=== PATIENT | female | born 1965 | race Caucasian/White ===

== ENCOUNTER 2019-09-18 04:06 | Emergency (ER) | payer BC, OTHER ==
[2019-09-18 04:22] VITALS: O2SAT 96
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
[2019-09-18 05:05] VITALS: BP 160/94; PULSE 74
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
== END 2019-09-18 05:13 | disposition home or self-care (01) ==
LOC: ED 04:06
DX: S46.911A Strain of unspecified muscle, fascia and tendon at shoulder and upper arm level, right arm, initial encounter (principal); M25.521 Pain in right elbow; M79.631 Pain in right forearm; Y04.0XXA Assault by unarmed brawl or fight, initial encounter; Y93.89 Activity, other specified; Y92.231 Patient bathroom in hospital as the place of occurrence of the external cause; Y99.0 Civilian activity done for income or pay
CPT/HCPCS: 73080; 99283

== ENCOUNTER 2022-01-27 06:03 | Day surgery (SDC) | payer OTHER ==
[2022-01-27] MEDS ORDERED: Lactated Ringers 1,000 ML IV SCH (06:30)
[2022-01-27] MEDS ORDERED: Xylocaine-Mpf 2% 5 Ml Vial ONE (07:04)
[2022-01-27] MEDS ORDERED: Versed 2 MG/2 ML Injection ONE (07:04)
[2022-01-27] MEDS ORDERED: DIPRIVAN 200 MG/20 ML IV ONE (07:04)
--- NOTE | 2022-01-27 07:49 | OP ---
SURGERY DATE/TIME: 01/27/2022 0705 PREOPERATIVE DIAGNOSES: 1) Gastroesophageal reflux. 2) Screening colon exam. POSTOPERATIVE DIAGNOSES: 1) GASTRITIS. 2) NORMAL COLON. PROCEDURE: 1) EGD with cold forceps biopsy. 2) Colonoscopy. SURGEON: Dr. Li. ANESTHESIA: MAC. Medications given by anesthesia department. HISTORY: The patient is a 56-year-old white female presenting now for request of doing upper endoscopy due to chronic gastroesophageal reflux disease. She has to take Prilosec otherwise she has abdominal pain. She reports she had her gallbladder removed ten years ago and has had problems over the last eight years. The patient is also felt to also need endoscopic evaluation for colon cancer screening. She was appraised of the risks of the procedure including the risk of perforation, phlebitis, untoward reaction to medication, bleeding and missed lesions. The patient verbalized her understanding and desired to have the procedure performed. DESCRIPTION OF PROCEDURE: The patient was given the medications by the anesthesia department. She had continuous pulse oximetry, ECG monitoring and intermittent blood pressure monitoring during the examination. She was placed in the left lateral decubitus position. A bite block was placed. The flexible Olympus gastroscope was used to intubate the oropharynx. A view of the larynx was obtained and was normal. The scope was introduced in the esophagus which appeared to be normal throughout its length. The stomach was entered where normal gastric rugal folds were seen and these distended nicely with insufflation of air. The scope was passed along the greater curvature of the stomach to the antrum. The pylorus encountered and intubated. The duodenum inspected and found to be normal. The scope is withdrawn towards the stomach. Again, a retroflex view was obtained of the lesser curvature of fundus and cardia region of the stomach and these appeared to be essentially normal. Biopsies were obtained from gastric antrum to rule out any evidence of Helicobacter pylori and confirm the presence of what we thought was likely clinical gastritis. The scope was then removed from the patient. Next, a digital rectal examination was performed and revealed normal anal sphincter tone and no masses. The flexible Olympus pediatric colonoscope was used to intubate the rectum. A view of the colon was developed sequentially to the cecum. Upon insertion and withdrawal, including a retroflex view in the rectum, no mucosal lesions were encountered. The scope was removed from the patient who tolerated the procedure well and was sent back to OP recovery in good condition. The prep was noted to be fair to good.
[2022-01-27 09:14] VITALS: O2SAT 97
[2022-01-27 09:22] VITALS: BP 128/78; PULSE 78
== END 2022-01-27 08:55 | disposition home or self-care (01) ==
LOC: SDC 06:03
PROVIDERS: ATTEND Family Medicine
DX: Z12.11 Encounter for screening for malignant neoplasm of colon (principal); K21.9 Gastro-esophageal reflux disease without esophagitis; K29.70 Gastritis, unspecified, without bleeding
CPT/HCPCS: J2250; J2704

== ENCOUNTER 2022-02-24 10:01 | Day surgery (SDC) | payer OTHER ==
[~2022-02-24 10:01] MED LIST: BUPIVACAINE 0.5% VIAL IJ ONE; Lactated Ringers 1,000 ML IV ONE; XYLOCAINE 1% HCL 20 ML MDV ONE
[2022-02-24] MEDS ORDERED: Lactated Ringers 1,000 ML IV SCH (10:30)
[2022-02-24] MEDS ORDERED: Lactated Ringers 1,000 ML IV ONE (10:39)
[2022-02-24] MEDS ORDERED: CEFAZOLIN 2 GM-D5W BAG** 2 GM/50 ML ML IV SCH (11:00)
[2022-02-24] MEDS ORDERED: Reglan 10 MG/2 ML IV ONE (11:15)
[2022-02-24] MEDS ORDERED: Pepcid 20 MG VIAL IV ONE (11:15)
[2022-02-24] MEDS ORDERED: Zofran 4 MG/2 ML VIAL ONE (11:22)
[2022-02-24] MEDS ORDERED: TORAdol 30 mg Injection ONE (11:22)
[2022-02-24] MEDS ORDERED: Decadron 4 MG INJ ONE (11:22)
[2022-02-24] MEDS ORDERED: DIPRIVAN 200 MG/20 ML IV ONE (11:22)
[2022-02-24] MEDS ORDERED: Xylocaine-Mpf 2% 5 Ml Vial ONE (11:22)
[2022-02-24] MEDS ORDERED: SUBLIMAZE 250 MCG/5 ML ONE (11:32)
[2022-02-24] MEDS ORDERED: SUBLIMAZE 100 MCG/2 ML ONE ×3 (12:06→13:22)
[2022-02-24] MEDS ORDERED: Versed 2 MG/2 ML Injection ONE (12:07)
[2022-02-24] MEDS ORDERED: Ephedrine Sulfate 50 MG/ML ONE (12:23)
[2022-02-24] MEDS ORDERED: Proair Hfa MDI IH ONE (12:52)
--- NOTE | 2022-02-24 15:30 | OP ---
SURGERY DATE/TIME: 02/24/2022 1204 PREOPERATIVE DIAGNOSES: 1) Pain left heel. 2) Plantar fasciitis left heel. POSTOPERATIVE DIAGNOSES: 1) Pain left heel. 2) Plantar fasciitis left heel. PROCEDURE: Endoscopic plantar fasciotomy. SURGEON: Timmy Ramos DPM. LOCKMAKER: Jade Stacy. ANESTHESIA: General plus postoperative local injection. HEMOSTASIS: Pressure dressing. ESTIMATED BLOOD LOSS: Less than 3 cc. MATERIALS: 3-0 Nylon. INJECTABLES: 20 cc of 1:1 mixture of 1% lidocaine plain and 0.5% bupivacaine plain injected in an ankle block type fashion. INDICATION FOR SURGERY: Cass is a very pleasant 56-year-old female who has been seen by me multiple time for plantar fasciitis, getting minimal relief with physical therapy eccentric stretching of posterior muscle group, ultrasound, PRN modalities, orthotics, injections and leg splint. The patient was offered continued conservative therapy. However, the patient at this time has failed all conservative therapies and would like to proceed with surgical intervention at this time. The patient was advised as to the potential complications, risks, benefits and complications of the procedure to which she agreed risk was acceptable. No guarantees were provided as to the outcome. The patient understands. Plenty of time was allowed for questions to be asked by her and her prior to the surgical intervention which was answered to her apparent satisfaction. It is with that we decided to proceed. DESCRIPTION OF PROCEDURE AND FINDINGS: The patient is brought into the OR and placed on the OR table in supine position. At this time the left lower extremity was prepped and draped in the typical sterile fashion. At this time the left lower extremity was lowered onto the surgical field. At this time, a measuring device was utilized to measure the posterior border of the tibia at the level of the medial malleolus and down to the plantar aspect of the left foot. At this time an incision was made utilizing a 15 blade approximately 1.5 cm from the plantar fat pad. At this time a trocar was introduced and utilized to elevate the soft tissue plane between the plantar fascia and the plantar fat pad. At this time a trocar and a slotted obturator was introduced from medial to lateral. The trocar was removed leaving the slotted cannula in its place. Three cotton tip applicators were introduced from the mediolateral fashion to clean out any residual adipose tissue from the surgical site. At this time, the 30 degree 4 mm camera was introduced from the medial aspect of the plantar fascia was inspected. At this time the foot was plantar flexed and dorsiflexed in order to assess if we are at the appropriate level. At this time a hook blade was then introduced from the lateral portal and utilized to cut the plantar fascia at the level of the medial aspect. The cut was then completed utilizing a triangle blade once again from the lateral to medial aspect being careful not to resect more than one-third of the plantar fascia. At this time inspection of the site was performed under fluoroscopic guidance demonstrating muscle being visualized beyond the plantar fascia indicating the resection was appropriate. At this time copious amounts of sterile saline were utilized to flush the surgical site. The obturator and the trocar were removed. The surgical site was coapted utilizing a 3-0 Nylon and horizontal mattress-type stitch from medial and lateral aspect of the foot. A dressing consisting of Betadine, Adaptic, 4x4, Kerlix and a lightly applied SARY compression dressing was applied to the left foot. The patient was then reversed from anesthesia and returned to the postoperative anesthesia care unit with vital signs stable and vascular status intact. The patient handled the procedure as well as the anesthesia without complication. Postoperative orders as indicated in the patient's discharge chart.
[2022-02-24 15:48] VITALS: O2SAT 96
[2022-02-24 15:54] VITALS: BP 136/81; PULSE 92
== END 2022-02-24 15:30 | disposition home or self-care (01) ==
LOC: SDC 10:01
PROVIDERS: ATTEND Podiatrist Foot & Ankle Surgery
DX: M72.2 Plantar fascial fibromatosis (principal); M79.672 Pain in left foot
CPT/HCPCS: 29893; J0690; J1100; J1885; J2250; J2405; J2704; J3010; A9270-GY

== ENCOUNTER 2022-04-10 05:46 | Day surgery (SDC) | payer OTHER ==
[2022-04-10] MEDS ORDERED: CEFAZOLIN 2 GM-D5W BAG** 2 GM/50 ML ML IV ONE (06:54)
[2022-04-10] MEDS ORDERED: Lactated Ringers 1,000 ML IV ONE ×2 (06:54→10:00)
[2022-04-10] MEDS ORDERED: Lactated Ringers 1,000 ML IV SCH (07:00)
[2022-04-10] MEDS ORDERED: CEFAZOLIN 2 GM-D5W BAG** 2 GM/50 ML ML IV SCH (07:00)
[2022-04-10] MEDS ORDERED: BUPIVACAINE 0.5% VIAL IJ ONE (07:46)
[2022-04-10] MEDS ORDERED: XYLOCAINE 1% HCL 20 ML MDV ONE (07:46)
[2022-04-10 07:54] LABS: ANION GAP 12.8 MEQ/L (5-15); BLOOD UREA NITROGEN 15 mg/dL (7-17); CHLORIDE 102 mmol/L (98-107); Calcium 9.8 mg/dL (8.4-10.2); Carbon Dioxide 29 mmol/L (22-30); Creatinine 1 0.75 mg/dL (0.52-1.04); EST GLOMERULAR FILTRATION RATE > 60.0 ML/MIN; Glucose 106 mg/dL (74-106); Potassium 3.8 mmol/L (3.5-5.1); SODIUM 140 mmol/L (137-145)
[2022-04-10] MEDS ORDERED: Versed 2 MG/2 ML Injection IV ONE (07:59)
[2022-04-10] MEDS ORDERED: Zofran 4 MG/2 ML VIAL ONE (08:38)
[2022-04-10] MEDS ORDERED: Decadron 4 MG INJ ONE (08:38)
[2022-04-10] MEDS ORDERED: DIPRIVAN 200 MG/20 ML IV ONE ×2 (08:38→09:13)
[2022-04-10] MEDS ORDERED: Xylocaine-Mpf 2% 5 Ml Vial ONE (08:38)
[2022-04-10] MEDS ORDERED: Pre-Attached Lta Kit TP ONE (08:40)
[2022-04-10] MEDS ORDERED: SUBLIMAZE 100 MCG/2 ML ONE ×2 (08:43→09:01)
[2022-04-10] MEDS ORDERED: Narcan 0.4 MG/ML ONE (09:13)
[2022-04-10] MEDS ORDERED: Proair Hfa MDI IH ONE (09:29)
[2022-04-10] MEDS ORDERED: Xopenex 1.25 MG/0.5 ML UD NEBULE IH ONE (09:30)
[2022-04-10] MEDS ORDERED: DUONEB 0.5-3 MG/3 ml Neb IH ONE (10:00)
--- NOTE | 2022-04-10 10:03 | XRAY ---
Indication: Postop chest pressure. Comparison: September 01, 2019. Portable chest less inflated with now minimal bibasilar subsegmental atelectasis. Remaining heart, lungs, and bony thorax unremarkable again with mild bony degenerative changes.
[2022-04-10 13:29] VITALS: PULSE 94; O2SAT 94
[2022-04-10 13:31] VITALS: BP 139/90
--- NOTE | 2022-04-10 14:38 | OP ---
SURGERY DATE: 04/10/2022 SURGERY TIME: 831 PREOPERATIVE DIAGNOSIS: 1. RECALCITRANT PLANTAR FASCIITIS LEFT LOWER EXTREMITY. 2. LEFT FOOT PAIN. POSTOPERATIVE DIAGNOSIS: 1. RECALCITRANT PLANTAR FASCIITIS LEFT LOWER EXTREMITY. 2. LEFT FOOT PAIN. PROCEDURE: 1. Left instep fasciotomy with fasciectomy. SURGEON: Timmy Ramos D.P.M. TERMINAL COMPUTER OPERATOR: None. ANESTHESIA: General plus a postoperative local block. See injectables for details. HEMOSTASIS: An ankle tourniquet set to 250 mm Hg for 4 minutes total tourniquet time. ESTIMATED BLOOD LOSS: Less than 1 cc. MATERIALS: 4-0 Monocryl, 3-0 Nylon. INJECTABLES: 20 cc of 1:1 mixture of 1% Lidocaine plain and 0.5% Bupivicaine plain injected in ankle block type fashion. INDICATIONS FOR PROCEDURE: Cass is a very pleasant 56 y/o female who recently had an endoscopic resection of the plantar fascia. The patient was persistent with weight bearing. As she progressed, the pain increased to the level that she had originally prior to the procedure. Because the procedure was endoscopic, partial resection of the plantar fascial band is a possibility as well as a requirement for not destabilizing the plantar fascia. Only 1/3 of the plantar fascia was cut. However, she did not have resolution of her symptoms. The patient did have an MRI that demonstrated her pathology is primarily the plantar fasciitis and the thickening to the plantar fascia as well as inflammation surrounding it. She does not have any indications of Alaniz's nerve entrapment, tarsal tunnel, or calcaneal stress fracture that explains her pain. The patient wishes to proceed at this time as she does have time off with FMLA in order to get the problem solved as necessary. The patient indicates that she has been nonweight-bearing for the first several weeks and once she began weight bearing in her shoe she had immediate return of the pain. Therefore, proceeding with this procedure was deemed adequate and necessary from both the physician and the patient's standpoint. The patient understands all risks, complications, and benefits of the procedure, but not limited to, failure of surgical intervention, possibility of infection, hematoma, seroma, possibility for need for surgical intervention at a later date. Patient understands all this and wishes to proceed with surgical intervention at this time. DESCRIPTION OF PROCEDURE: The patient was brought in to the operating room and placed on the operating room table in a supine position. At this time, adequate general anesthesia was administered. A left ankle tourniquet was applied and the tourniquet was set to 250 mm Hg. At this time, the left lower extremity was prepped and draped in the sterile fashion and lowered onto the surgical field. At this time, an incision was made at 1.5 cm from the medial aspect distal to the weight bearing surface of the left heel. This incision measured 1 " in length and went longitudinal with resting skin tension lines. At this time, a freer was utilized to performed blunt and sharp dissection down to the level of the plantar fascia where the medial band of the plantar fascia was identified as well as the central band of the plantar fascia. This was incised utilizing a 15 blade down to the level of muscle making sure that there were no remaining structures intact. The lateral band was identified and protected utilizing a Kyleigh. Following this, when this mechanism was activated and deemed to be eliminated. At this time, copious amounts of sterile saline were utilized to flush the surgical site. A 4-0 Monocryl was utilized to coapt the subcutaneous skin edges in a simple buried type fashion and the 3-0 Nylon was utilized in a horizontal mattress type fashion to coapt the skin edges. Dressing consisting of betadine, Adaptic, 4 X 4, Kerlex, and [place] was applied to the left lower extremity. Patient was reversed from anesthesia at this time and returned to PACU with vital signs stable and vascular status intact. Patient handled the anesthesia as well as the procedure without complication. Postoperative orders as indicated in the patient's discharge chart.
== END 2022-04-10 11:45 | disposition home or self-care (01) ==
LOC: SDC 05:46
PROVIDERS: ATTEND Podiatrist Foot & Ankle Surgery
DX: M72.2 Plantar fascial fibromatosis (principal); M79.672 Pain in left foot; F41.9 Anxiety disorder, unspecified
CPT/HCPCS: 28060; 36415; 71045; 80048; 93005; 94640; J0690; J1100; J2250; J2310; J2405; J2704; J3010; A9270-GY

== ENCOUNTER 2023-07-25 09:29 | Emergency (ER) | payer OTHER ==
[2023-07-25] MEDS ORDERED: Racepinephrine INH Solution 2.25% IH ONE (09:37)
[2023-07-25] MEDS ORDERED: Sodium Chloride 3 ML UD NEBULES IH ONE (09:37)
[2023-07-25 09:41] VITALS: TEMP 98.2; O2SAT 93
--- NOTE | 2023-07-25 09:59 | ERPHSYRPT ---
- History of Present Illness Time Seen by Provider: 07/25/23 09:40 Source: patient, family Exam Limitations: no limitations Patient Subjective Stated Complaint: stung by a nest of wasps when she placed her hand in a nest accidentally Triage Nursing Assessment: Pt brought to the ER by her daughter, blane rios, rates pain as 8/10, pt states that she is allergic to wasps and she got stung yesterday and she has been taking benadryl around the clock but the pain continues and the swelling continues, pulses normal, skin n/w/d, right hand and wrist is swollen and hot to the touch, denies difficulty breathing Physician History: This a 57-year-old white female patient who is working in the yard and stuck her hand in the maya and there was a wasp there and it stung her dorsal aspect of her right hand. Patient did take 75 mg of Benadryl at 3:00 this morning. Patient has had significant swelling since her wasp sting yesterday. There is redness and warmth to the dorsal aspect of her right hand and this became concer cal to her. She has not had a fever. Patient has a history of GERD, hyperlipidemia, hypertension and depression Timing/Duration: yesterday Quality: burning Severity: mild (To moderate) Location: hands (Dorsal aspect right hand) Possible Causes: insect sting Modifying Factors: Improves With: other Associated Symptoms: other (Redness swelling and warmth dorsal aspect right hand) Allergies/Adverse Reactions: trimethoprim [From Bactrim] Allergy (Severe, Verified 07/25/23 09:41) Rash sulfamethoxazole [From Bactrim] Allergy (Verified 07/25/23 09:41) Rash amoxicillin [From Augmentin] Adverse Reaction (Verified 07/25/23 09:41) Diarrhea DJIARRHEA clavulanic acid [From Augmentin] Adverse Reaction (Verified 07/25/23 09:41) Diarrhea DIARRHEA Home Medications: Omeprazole 20 MG [Prilosec 20 mg] 40 mg PO DAILY 11/15/16 [History] Paroxetine HCl 20 mg [Paxil 20 MG] 20 mg PO DAILY 09/18/19 [History] Simvastatin 20Mg [Zocor 20Mg] 20 mg PO DAILY 09/18/19 [History] Lisinopril 10 mg [Zestril 10 MG] 5 mg PO DAILY 01/21/22 [History] Ropinirole HCl 0.5 mg [Requip 0.5 MG] 0.5 mg PO DAILY PRN 01/21/22 [History] Hx Tetanus, Diphtheria Vaccination/Date Given: Yes Hx Influenza Vaccination/Date Given: Yes Hx Pneumococcal Vaccination/Date Given: No Travel Risk - International Travel Have you traveled outside of the country in past 3 weeks: No - Coronavirus Screening Are you exhibiting any of the following symptoms?: No Close contact with a COVID-19 positive Pt in past 14-21 Days: No - Vaccine Status Have you recieved a Covid-19 vaccination: Yes Paper Bag Machine Operator: Moderna - Vaccination Dates Date of 2cond Vaccination (if applicable): 2020 - Review of Systems Constitutional: No Symptoms Eyes: No Symptoms Ears, Nose, & Throat: No Symptoms Respiratory: No Symptoms Cardiac: No Symptoms Abdominal/Gastrointestinal: No Symptoms Genitourinary Symptoms: No Symptoms Musculoskeletal: No Symptoms Skin: Cellulitis (Dorsal aspect right hand with associated redness and swelling and warmth) Neurological: No Symptoms Psychological: No Symptoms Endocrine: No Symptoms Hematologic/Lymphatic: No Symptoms Immunological/Allergic: No Symptoms All Other Systems: Reviewed and Negative - Past Medical History Pertinent Past Medical History: Yes Neurological History: Migraines ENT History: No Pertinent History Cardiac History: Hypertension Respiratory History: No Pertinent History Endocrine Medical History: No Pertinent History Musculoskeletal History: No Pertinent History GI Medical History: GERD History: Other Psycho-Social History: No Pertinent History Female Reproductive Disorders: No Pertinent History Other Medical History: Cholecystectomy,kidney problems age 3 to 11. plantar fasitis - Past Surgical History Past Surgical History: Yes Neuro Surgical History: No Pertinent History Cardiac: No Pertinent History Respiratory: No Pertinent History Gastrointestinal: Cholecystectomy Genitourinary: Kidney Surgery Female Surgical History: Tubal Ligation Other Surgical History: childhood nephritis. colonoscopy, L foot fasciotomy - Social History Smoking Status: Never smoker Exposure to second hand smoke: No Drug Use: none Patient Lives Alone: No - Nursing Vital Signs Nursing Vital Signs: Initial Vital Signs Temperature 98.2 F 07/25/23 09:33 Pulse Rate 85 07/25/23 09:33 Blood Pressure 129/87 07/25/23 09:33 O2 Sat by Pulse Oximetry 93 L 07/25/23 09:33 Pain Scale Pain Intensity 8 - Physical Exam General Appearance: no apparent distress, alert, anxiety Eye Exam: PERRL/EOMI, eyes nml inspection Ears, Nose, Throat Exam: normal ENT inspection, moist mucous membranes Neck Exam: normal inspection, non-tender, supple, full range of motion Respiratory Exam: normal breath sounds, lungs clear, airway intact, No chest tenderness, No respiratory distress Cardiovascular Exam: regular rate/rhythm, normal heart sounds, normal peripheral pulses Gastrointestinal/Abdomen Exam: soft, normal bowel sounds, tenderness Pelvic Exam: not done Rectal Exam: not done Back Exam: normal inspection, normal range of motion, No CVA tenderness, No vertebral tenderness Extremity Exam: normal range of motion, pelvis stable, inflammation (Dorsal aspect right hand), swelling (Dorsal aspect right hand), tenderness (Dorsal aspect right hand) Neurologic Exam: alert, oriented x 3, cooperative, rn unit manager II-XII nml as tested, normal mood/affect, nml cerebellar function, nml station & gait, sensation nml Skin Exam: other Lymphatic Exam: No adenopathy (Cellulitis dorsal aspect right hand) SpO2 Interpretation: borderline oxygenation SpO2: 93 - Course Nursing assessment & vital signs reviewed: Yes Ordered Tests: Medication Summary Discontinued Medications Generic Name Dose Route Start Last Admin Trade Name Freq PRN Reason Stop Dose Admin Epinephrine Confirm 07/25/23 09:37 Racepinephrine Inh Kiki 0.5 Ml Neb Administered 07/25/23 09:38 Dose 0.5 ml IH .STK-MED ONE Sodium Chloride Confirm 07/25/23 09:37 Sodium Cl For Inhalation 3 Ml Ud Nebule Administered 07/25/23 09:38 Dose 3 ml IH .STK-MED ONE - Progress Progress: unchanged Progress Note: 07/25/23 09:58 This patient's medical issue is 1 of low to moderate complexity. The level of complexity in the work-up performed is based on review of the patient's past medical history, review the patient's medication list, review of the patient's drug allergy list, history of present illness and physical findings on examination. The work-up in this patient does not include laboratory or radiographic studies. However patient is receiving Levaquin antibiotic, Benadryl, Pepcid and intramuscular Solu-Medrol. In addition these class of medications will be remotely sent to her pharmacy for continued use over the next 4 days as well as 7-day prescription of antibiotic. Counseled pt/family regarding: diagnosis, need for follow-up Medical Desision Making - Independent Historian Additional History obtained from: Child - Diagnostic Testing Diagnostic test were ordered, analyzed, and reviewed by me: No - Risk of complications The pt has a mod risk of morbidity or mortality based on: Need for prescription drug management - Departure Departure Disposition: Home Clinical Impression: Allergic reaction, Cellulitis Condition: Stable Critical Care Time: No Referrals: [facility] [Primary Care Provider] - Follow up/PCP as directed Additional Instructions: Keep the right hand clean daily with soap and water. Take your medication as prescribed. May apply ice pack to the right hand for further treatment of swelling. Take Benadryl 25 mg orally every 8 hours for 4 days. Follow-up with your primary care provider tomorrow, 07/26/2023, by phone to make arranges for follow-up appointment and further management. Prescriptions: Prednisone 10 mg [Deltasone 10 mg] 10 mg PO TID #12 tablet Levofloxacin [Levaquin 500 MG Tablet] 500 mg PO DAILY #7 tablet Famotidine 20 mg [Pepcid 20 MG] 20 mg PO DAILY #5 tablet
[2023-07-25] MEDS ORDERED: solu-MEDROL 125 MG, Sterile H2O 10 ml 2 ML IM ONE ×2 (10:07)
[2023-07-25] MEDS ORDERED: Pepcid 20 MG PO ONE (10:07)
[2023-07-25] MEDS ORDERED: Levofloxacin 500 MG Tablet PO ONE (10:07)
[2023-07-25] MEDS ORDERED: BENADRYL 25 MG CAPSULE PO ONE (10:08)
[2023-07-25] MEDS ORDERED: BENADRYL 25 MG CAPSULE ONE (10:15)
[2023-07-25] MEDS ORDERED: Levofloxacin 500 MG Tablet ONE (10:15)
[2023-07-25] MEDS ORDERED: Pepcid 20 MG ONE (10:15)
[2023-07-25] MEDS ORDERED: solu-MEDROL ONE (10:15)
[2023-07-25] MEDS ORDERED: Sterile H2O 10 ml IJ ONE (10:15)
[2023-07-25] MEDS ORDERED: NORCO 5/325 MG PO ONE (10:20)
[2023-07-25] MEDS ORDERED: NORCO 5/325 MG ONE (10:23)
[2023-07-25 10:27] VITALS: BP 125/83; PULSE 70
== END 2023-07-25 10:39 | disposition home or self-care (01) ==
LOC: ED 09:29
DX: T63.461A Toxic effect of venom of wasps, accidental (unintentional), initial encounter (principal); M79.89 Other specified soft tissue disorders; Y92.007 Garden or yard of unspecified non-institutional (private) residence as the place of occurrence of the external cause; L03.113 Cellulitis of right upper limb; E78.5 Hyperlipidemia, unspecified; I10 Essential (primary) hypertension; Z79.899 Other long term (current) drug therapy; Z79.52 Long term (current) use of systemic steroids
CPT/HCPCS: 96372; 99283; J2930; A9270-GY